=== PATIENT | female | born 1985 | race Caucasian/White ===

== ENCOUNTER 2019-12-09 15:25 | Emergency (ER) | payer OTHER, SELFPAY ==
--- NOTE | ~2019-12-09 | XR_ITS ---
EXAMINATION: XR chest 2V DATE: 12/09/2019 17:03 INDICATION: Left-sided chest pain TECHNIQUE: PA and lateral views of the chest are obtained. COMPARISON: None available FINDINGS: The lungs are free of acute opacities. There is no pleural effusion or pneumothorax. The ca rdiomediastinal silhouette is normal. Surgical clips in the right upper quadrant are likely from prio r cholecystectomy. IMPRESSION: 1. No acute cardiopulmonary abnormality. Reviewed, dictated and finalized at location A.
[2019-12-09 15:34] VITALS: BP 139/78; PULSE 71; RESP 16; TEMP 36.9; O2SAT 100
[2019-12-09 17:01] LABS: Add Urine Microscopic? YES; Appearance Urine Clear (Clear); Bacteria Urine Trace /hpf; Bilirubin Urine Negative (Negative); Blood Urine 2+ (Negative); Color Urine Straw (Yellow); Glucose Urine UA Negative (Negative); Ketones Urine Negative (Negative); Leukocyte Esterase Ur Negative LEU/UL (Negative); Nitrate Urine Negative (Negative); Protein Urine Negative (Negative); RBC Urine 0-2 /hpf (0-2); Specific Grav Ur 1.009 (1.001-1.035); Squamous Epithelial Cell Urine Rare /hpf (Few); Urobilinogen Urine Negative mg/dL (<2.0); WBC Urine 0-3 /hpf
[2019-12-09 17:05] LABS: Basophils Percent Auto 0.3 % (0.2-1.2); Eosinophils Absolute Auto 0.1 K/mm3 (0-0.3); Eosinophils Percent Auto 1.3 % (0-4.4); Hematocrit 43.2 % (37.0-47.0); Hemoglobin 14.3 g/dL (12.0-15.0); Immature Granulocyte Absolute 0.01 K/mm3 (0.00-0.031); Immature Granulocyte Percent A 0.1 % (0-0.5); Lymphocytes Absolute Auto 2.69 K/mm3 (0.9-3.2); Lymphocytes Percent Auto 39.7 % (18.3-44.2); Mean Corpuscular HGB Conc 33.1 g/dl (32-36); Mean Corpuscular Hemoglobin 28.9 pg (26-34); Mean Corpuscular Volume 87.4 fl (80-100); Mean Platelet Volume 9.5 fl (7.4-10.4); Monocytes Absolute Auto 0.5 K/mm3 (0.1-0.6); Neutrophils Absolute Auto 3.4 K/mm3 (1.3-6.7); Neutrophils Percent Auto 50.6 % (45.5-73.1); Platelet Count Result 355 k/mm3 (150-375); Red Blood Count 4.94 M/mm3 (4.2-5.4); Red Cell Distribution Width 12.8 % (11.5-14.5); White Blood Count 6.8 K/mm3 (4.5-10.0)
[2019-12-09 17:17] LABS: Potassium 4.3 mmol/L (3.4-5.0)
[2019-12-09 17:20] LABS: D Dimer 0.32 ug/mL (<0.48)
[2019-12-09 17:21] LABS: Alanine Aminotransferase 32 U/L (4-35); Albumin Level 4.8 g/dL (3.5-5.1); Alkaline Phosphatase 73 U/L (38-126); Anion Gap 9 mmol/L (8-16); Aspartate Amino Transferase 25 U/L (14-36); Bilirubin,Total 0.3 mg/dL (0.2-1.3); Blood Urea Nitrogen 10 mg/dL (7-17); Calcium 9.6 mg/dL (8.4-10.2); Carbon Dioxide 29 mmol/L (22-30); Chloride 102 mmol/L (98-107); Estimated CRCL calculation 90 ml/min; Estimated Glomerular Filt Rate > 60; Glucose 94 mg/dL (65-105); Sodium 140 mmol/L (137-145)
--- NOTE | 2019-12-09 18:00 | ED.GENADULT ---
HPI - General Adult General Chief complaint: Extremity Problem,Nontraumatic Stated complaint: left chest, shoulder pain Time Seen by Provider: 12/09/19 16:14 Source: patient Mode of arrival: ambulatory Limitations: no limitations History of Present Illness HPI narrative: Left shoulder and left chest pain started 1 week ago. Patient denies any trauma. Patient denies any fever, chills, nausea, vomiting, back pain or shortness of breath. Patient reported that the pain is constant, dull aching,. Patient had a [id number] baby was quite a bit of holding and carrying the baby most of the day. Related Data Home Medications Medication Instructions Recorded Confirmed desogestrel-ethinyl estradiol tablet DAILY 12/09/19 [[place]] Allergies Allergy/AdvReac Type Severity Reaction Status Date / Time No Known Allergies Allergy Verified 12/09/19 15:39 Review of Systems Review of Systems: Narrative: CONSTITUTIONAL: Denies fever, chills, or sweats. EYES: Denies visual changes, redness, or discharge. ENT: Denies rhinorrhea, congestion, sore throat, or otalgia. CARDIOVASCULAR: Denies chest pain, palpitations, or edema. RESPIRATORY: Denies cough or dyspnea. GASTROINTESTINAL: Denies abdominal pain, nausea, vomiting, or diarrhea. GENITOURINARY: Denies dysuria or hematuria. SKIN: Denies rash or itching. MUSCULOSKELETAL: Denies back pain, joint pain, or myalgia. NEUROLOGIC: Denies headache, numbness, or weakness. PSYCHIATRIC: Denies anxiety or depression. [facility] Social History Social History Gender identity (if verbalized by the patient): Female Exam Narrative: Exam Narrative: General appearance: Well-developed, well-nourished Skin: Normal color Head: Normocephalic, nontraumatic Eyes: Clear conjunctiva ENT: Oropharynx normal, ears normal, nose normal Neck: Supple, nontender Chest and respiratory: Airway patent, no respiratory distress, no accessory muscle use Heart: Regular rate/rhythm Abdomen: Soft, nontender, no organomegaly, quiet bowel sounds Vascular: Normal peripheral pulses, normal capillary refill. Musculoskeletal: Normal range of motion, nontender back Neurologic: Alert and oriented ?3, [employer] is normal as tested, no gross motor deficit Course Course Emergency Course: Stable Vital Signs Vital signs: Vital Signs Temperature 36.9 C 12/09/19 15:34 Pulse Rate 71 12/09/19 15:34 Respiratory Rate 16 12/09/19 15:34 Blood Pressure 139/78 12/09/19 15:34 Pulse Oximetry 100 12/09/19 15:34 Temperature 36.9 C 12/09/19 15:34 Pulse Rate 71 12/09/19 15:34 Respiratory Rate 16 12/09/19 15:34 Blood Pressure 139/78 12/09/19 15:34 Pulse Oximetry 100 12/09/19 15:34 Medical Decision Making MDM Narrative Medical decision making narrative: Patient presents with nontraumatic pain at the shoulder left chest left upper back. Physical exam showed no bruises, no swelling, no localized tenderness, no rash. Patient been taking care of 10 months of the child with a lot of lifting and holding which probably the underlying cause of patient complaint. My plan to get chest x-ray, d-dimer and the blood test to rule out any possible pneumothorax, pulmonary embolism. Differential Diagnosis Differential Diagnosis: Musculoskeletal pain, pneumothorax, pulmonary glistening, pneumonia Vital Signs Vital Signs: Vital Signs Temperature 36.9 C 12/09/19 15:34 Pulse Rate 71 12/09/19 15:34 Respiratory Rate 16 12/09/19 15:34 Blood Pressure 139/78 12/09/19 15:34 Pulse Oximetry 100 12/09/19 15:34 Temperature 36.9 C 12/09/19 15:34 Pulse Rate 71 12/09/19 15:34 Respirato
== END 2019-12-09 18:09 | disposition home or self-care (01) ==
PROVIDERS: Emergency Provider Emergency Medicine
DX: R07.9 Chest pain, unspecified (principal); M25.512 Pain in left shoulder
CPT/HCPCS: 36415; 71046; 80053; 81001; 81025; 85025; 85380; 99283

== ENCOUNTER → 2020-11-07 02:55 | Outpatient (CLI) | payer OTHER, SELFPAY ==
[2020-11-07 20:01] LABS: SARS-CoV-2 RNA PCR Negative
== END ==
PROVIDERS: PCP Otolaryngology Plastic Surgery within the Head & Neck; Visit Provider Otolaryngology Plastic Surgery within the Head & Neck
DX: R68.89 Other general symptoms and signs (principal); Z20.822 Contact with and (suspected) exposure to COVID-19
CPT/HCPCS: C9803; U0003; U0005

== ENCOUNTER → 2020-11-14 12:06 | Outpatient (CLI) | payer OTHER, SELFPAY ==
--- NOTE | ~2020-11-14 | CT_ITS ---
EXAMINATION: CT abdomen pelvis w con INDICATION: Left lower quadrant pain TECHNIQUE: Computed tomographic images of the abdomen and pelvis were obtained after the administrati on of 100 cc of Omnipaque 350 intravenous contrast. The dose-length product (DLP) was 360.01 mGy-cm. Automated exposure control and iterative reconstruction technique were employed. COMPARISON: None available FINDINGS: The lung bases are clear. The heart size is normal. The gallbladder is surgically absent. T he liver, spleen, pancreas, and adrenal glands are normal. The kidneys are unremarkable. No pathologi agatha enlarged abdominal or pelvic lymph nodes are identified. There is no free intraperitoneal gas o r evidence of bowel obstruction. The appendix is normal. There is prominence of the parametrial veins in the pelvis. IMPRESSION: 1. No CT correlate for the patient's symptoms. 2. Prominence of the parametrial veins which can be seen in the setting of pelvic venous congestion s yndrome in the correct clinical scenario. Reviewed, dictated and finalized at location A. IMPRESSION: 1. No CT correlate for the patient's symptoms. 2. Prominence of the parametrial veins which can be seen in the setting of pelv ic venous congestion syndrome in the correct clinical scenario.
== END ==
PROVIDERS: PCP Internal Medicine; Visit Provider Internal Medicine
DX: K57.92 Diverticulitis of intestine, part unspecified, without perforation or abscess without bleeding (principal)
CPT/HCPCS: 74177; Q9967

== ENCOUNTER 2020-11-18 08:57 | Emergency (ER) | payer OTHER, SELFPAY ==
--- NOTE | ~2020-11-18 | CT_ITS ---
EXAMINATION: CTA chest PE protocol DATE: 11/18/2020 12:37 INDICATION: Right-sided chest/rib pain TECHNIQUE: Computed tomography (CT) pulmonary angiogram of the chest was performed with 100 mL Omnipa que-350 intravenous contrast. Additional 3D reconstructions utilizing coronal maximum intensity proje ction (MIP) were performed. Automated exposure control and iterative reconstruction technique were em ployed. The dose-length product was 148.55 mGy-cm. COMPARISON: None FINDINGS: Excellent contrast opacification of the pulmonary arteries. There is mild streak artifact from dense contrast in the superior vena cava and right atrium. Mild scattered respiratory motion artifact which mildly limits evaluation in some of the left-sided basilar subsegmental pulmonary arteries. No pulmo nary embolism. No pneumonia, pulmonary edema or other pulmonary infiltrates. No pleural effusion or p neumothorax. Heart size is normal. No pericardial effusion. Thoracic aorta is normal in caliber with no dissection. No pathologically enlarged thoracic lymphadenopathy. Cholecystectomy clips in right up per quadrant. Bones are unremarkable. IMPRESSION: 1. No pulmonary embolism or other acute cardiopulmonary disease. Sensitivity mildly decreased in some of the left basilar subsegmental pulmonary arteries due to some motion artifact. Reviewed, dictated and finalized at location A. IMPRESSION: 1. No pulmonary embolism or other acute cardiopulmonary disease. Sensitivity mi ldly decreased in some of the left basilar subsegmental pulmonary arteries due to some motion artifact.
--- NOTE | ~2020-11-18 | XR_ITS ---
EXAMINATION: XR chest 2V DATE: 11/18/2020 11:02 INDICATION: Acute onset anterior chest pain and shortness of breath TECHNIQUE: PA and lateral views of the chest were obtained. COMPARISON: Chest radiograph dated 12/09/2019 FINDINGS: The lungs remain clear with no focal airspace opacities, pulmonary edema, pleural effusion or pneumot horax. The cardiomediastinal silhouette is normal. Cholecystectomy clips in right upper quadrant. Vis ualized bones and soft tissues are unremarkable. IMPRESSION: 1. No acute cardiopulmonary disease. Reviewed, dictated and finalized at location A.
[2020-11-18 09:17] VITALS: BP 121/70; PULSE 76; RESP 15; TEMP 36.6; O2SAT 100
[2020-11-18 09:21] LABS: Basophils Percent Auto 0.4 % (0.2-1.2); Eosinophils Absolute Auto 0.1 K/mm3 (0-0.3); Eosinophils Percent Auto 0.8 % (0-4.4); Hematocrit 44.4 % (37.0-47.0); Hemoglobin 14.5 g/dL (12.0-15.0); Immature Granulocyte Absolute 0.03 K/mm3 (0.00-0.031); Immature Granulocyte Percent A 0.4 % (0-0.5); Mean Corpuscular HGB Conc 32.7 g/dl (32-36); Mean Corpuscular Hemoglobin 29.4 pg (26-34); Mean Corpuscular Volume 90.1 fl (80-100); Mean Platelet Volume 9.5 fl (7.4-10.4); Monocytes Absolute Auto 0.6 K/mm3 (0.1-0.6); Neutrophils Absolute Auto 4.5 K/mm3 (1.3-6.7); Neutrophils Percent Auto 62.4 % (45.5-73.1); Platelet Count Result 281 k/mm3 (150-375); Red Blood Count 4.93 M/mm3 (4.2-5.4); Red Cell Distribution Width 12.8 % (11.5-14.5); White Blood Count 7.2 K/mm3 (4.5-10.0)
[2020-11-18 09:34] LABS: Anion Gap 5 mmol/L (8-16); Blood Urea Nitrogen 9 mg/dL (7-17); Calcium 9.6 mg/dL (8.4-10.2); Carbon Dioxide 29 mmol/L (22-30); Chloride 105 mmol/L (98-107); Estimated CRCL calculation 124 ml/min; Estimated Glomerular Filt Rate > 60; Glucose 100 mg/dL (65-110); Potassium 4.2 mmol/L (3.4-5.0); Sodium 139 mmol/L (137-145)
[2020-11-18 10:04] LABS: Add Urine Microscopic? YES; Appearance Urine Clear (Clear); Bilirubin Urine Negative (Negative); Blood Urine 2+ (Negative); Color Urine Yellow (Yellow); Glucose Urine UA Negative (Negative); Ketones Urine Negative (Negative); Leukocyte Esterase Ur Negative LEU/UL (Negative); Mucus Urine Rare /lpf; Nitrate Urine Negative (Negative); Protein Urine Negative (Negative); Specific Grav Ur 1.016 (1.001-1.035); Squamous Epithelial Cell Urine Rare /hpf (Few); Urobilinogen Urine Negative mg/dL (<2.0); WBC Urine 0-3 /hpf
[2020-11-18] MEDS: KETOROLAC 30 MG/ML VIAL (*BKC) IV PUSH (10:49)
--- NOTE | 2020-11-18 10:51 | ED.GENADULT ---
HPI - General Adult General Chief complaint: Back Pain/Injury Stated complaint: left side pain Time Seen by Provider: 11/18/20 10:01 Source: patient History of Present Illness HPI narrative: Patient is a 35 y/o female complaining of left back pain and left upper abdominal pain starting 1 week ago. She now also has some left sided chest pain. She describes her pain as dull ache and rates it as 4/10. There is no known alleviating or exacerbating factor. She took TUMs and Ibuprofen which did not help. She had a CT scan of abdomen 4 days ago, which was essentially negative. Currently her pain move to left chest area. She has no SOB, nausea or vomiting. Related Data Home Medications Medication Instructions Recorded Confirmed No Home Medications 11/18/20 11/18/20 Allergies Allergy/AdvReac Type Severity Reaction Status Date / Time No Known Allergies Allergy Verified 11/14/20 10:44 Review of Systems Constitutional: Constitutional: Denies chills, Denies fever(s), Denies headache(s) and Denies weakness Eyes: Eyes: Denies blurry vision ENT: Denies headache(s) and Denies neck pain Cardiovascular: Cardiovascular: Reports chest pain and Denies dyspnea Respiratory: Respiratory: Denies cough and Denies dyspnea Gastrointestinal: Gastrointestinal: Reports abdominal pain, Denies diarrhea, Denies nausea and Denies vomiting Genitourinary: Genitourinary: Denies hematuria and Denies dysuria Musculoskeletal: Musculoskeletal: Reports back pain and Denies neck pain Neurologic: Denies headache(s) and Denies weakness PMF Social History Social History Smoking status: Never smoker Alcohol use details: social Gender identity (if verbalized by the patient): Female Exam Const: General: no acute distress and well developed Orientation/consciousness: oriented to person, oriented to place, oriented to time and patient oriented x3 HENMT: Head: normocephalic Ears: external ears normal General nose exam: Normal external nose present Eyes: General: appearance normal, both eyes and all related structures Conjunctivae: conjunctivae normal Neck: Neck: normal visual inspection and full ROM Chest: Chest palpation & inspection: normal inspection of the chest and no tenderness Resp: Effort & Inspection: normal respiratory effort Auscultation: clear to auscultation bilaterally Cardio: Rate: regular rate Rhythm: regular rhythm GI: GI Palp: No abdominal tenderness and Yes Soft to palpation Skin: General skin exam: normal color and turgor normal Neuro: General: oriented to person, oriented to place, oriented to time and patient oriented x3 Cognition (Neuro): normal cognition Extrem: General: normal to inspection, full ROM and no pedal edema Psych: Appearance: grossly normal Mental Status: mental status grossly normal Affect: normal affect Course Vital Signs Vital signs: Vital Signs Temperature 36.6 C 11/18/20 09:17 Pulse Rate 76 11/18/20 09:17 Respiratory Rate 15 11/18/20 09:17 Blood Pressure 121/70 11/18/20 09:17 Pulse Oximetry 100 11/18/20 09:17 Temperature 36.6 C 11/18/20 09:17 Pulse Rate 62 11/18/20 13:50 Respiratory Rate 16 11/18/20 13:50 Blood Pressure 122/67 11/18/20 13:50 Pulse Oximetry 100 11/18/20 13:50 Medical Decision Making Vital Signs Vital Signs: Vital Signs Temperature 36.6 C 11/18/20 09:17 Pulse Rate 76 11/18/20 09:17 Respiratory Rate 15 11/18/20 09:17 Blood Pressure 121/70 11/18/20 09:17 Pulse Oximetry 100 11/18/20 09:17 Temperature 36.6 C 11/18/20 09:17 Pulse Rate 62 11/18/20 13:50 Respiratory Rate 16 11/18/20 13:50 Blood Pressure 122/67 11/18/20 13:50 Pulse Oximetry 100 11/18/20 13:50 Lab Data Result diagrams: 11/18/20 09:15 11/18/20 09:15 Labs: Lab Results 11/18/20 11/18/20 11/18/20 Range/Units 09:14 09:15 09:15 WBC
--- NOTE | 2020-11-18 10:52 | ECG_ITS ---
Measurements Intervals [place] Rate: 74 P: 62 AL: 122 QRS: 37 QRSD: 96 T: 51 QT: 376 QTc: 419 Interpretive Statements SINUS RHYTHM INCOMPLETE RIGHT BUNDLE BRANCH BLOCK BASELINE ARTIFACT- V2 BORDERLINE ECG Electronically Signed On 11-18-2020 17:12:31 CDT by Michael Soni D.O.
--- NOTE | 2020-11-18 10:58 | PC.NURSE ---
chem, [place], added on Trop I
[2020-11-18 11:18] LABS: Troponin I < 0.012 ng/mL (0.000-0.034)
[2020-11-18 13:09] VITALS: BP 125/77; PULSE 96; RESP 16; O2SAT 100
[2020-11-18 13:50] VITALS: BP 122/67; PULSE 62; RESP 16; O2SAT 100
[2020-11-18 14:30] LABS: Troponin I < 0.012 ng/mL (0.000-0.034)
== END 2020-11-18 13:51 | disposition home or self-care (01) ==
PROVIDERS: Emergency Provider Emergency Medicine; PCP Internal Medicine
DX: R10.12 Left upper quadrant pain (principal); R07.9 Chest pain, unspecified
CPT/HCPCS: 36415; 71046; 71275; 80048; 81001; 81025; 84484; 85025; 93005; 96374; 99284; J1885; Q9967

== ENCOUNTER → 2022-06-24 14:19 | Outpatient (CLI) | payer OTHER, SELFPAY ==
--- NOTE | ~2022-06-24 | US_ITS ---
US soft tissue groin LT 06/24/2022 14:37 Indication: Left groin pain. Bulge in the left groin. Procedure: High-resolution ultrasound of the left groin Comparison: CT dated 11/14/2020 Findings: There is a normal-appearing lymph node in the left inguinal location measuring 1 cm. No oth er discrete mass identified. No abnormal fluid collections. Impression: 1: Unremarkable ultrasound of the left groin soft tissues. Reviewed, dictated and finalized at location B. Impression: 1: Unremarkable ultrasound of the left groin soft tissues.
== END ==
PROVIDERS: PCP Family Medicine; Visit Provider Family Medicine
DX: R10.32 Left lower quadrant pain (principal); R19.09 Other intra-abdominal and pelvic swelling, mass and lump
CPT/HCPCS: 76882